=== PATIENT | female | born 1995 | race African-American/Black ===

== ENCOUNTER 2016-07-24 14:41 | Emergency (ER) ==
[2016-07-24 14:51] VITALS: BP 143/94; TEMP 98.4; BMI 35.4
--- NOTE | 2016-07-24 14:59 | ED.PDOC ---
General ED Provider: Dr. JORGE DONNELLY JR Chief Complaint: Abdominal Pain Stated Complaint: patient states she started have pain in left side that was dull and aching. states now it is all across abd. patient states she has had n/ v/d. states has been some bright red blood in the toilet.[ End ]since 299 98.4 85 16 97% 143/94 7/10 loose stools totalof four times nausea and vomiting about the same no one else ill Time Seen by Physician: 14:58 Mode of Arrival: Walk-In Information Source: Patient Exam Limitations: No limitations Primary Care Provider: [facility] Nursing and Triage Documentation Reviewed and Agree: Yes Review of Systems - Review Of Systems Constitutional: Reports: Malaise, Weakness Eyes: Reports: No symptoms Ears, Nose, Mouth, Throat: Reports: No symptoms Respiratory: Reports: No symptoms Cardiac: Reports: No symptoms GI: Reports: Abdominal pain, Blood streaked bowels, Nausea, Vomiting : Reports: No symptoms Musculoskeletal: Reports: No symptoms Skin: Reports: No symptoms Neurological: Reports: No symptoms Endocrine: Reports: No symptoms Hematologic/Lymphatic: Reports: No symptoms All Other Systems: Other Past Medical History - Past Medical History Previously Healthy: Yes Endocrine: Reports: DM 1 Cardiovascular: Reports: None Respiratory: Reports: Asthma Hematological: Reports: None Gastrointestinal: Reports: None Genitourinary: Reports: None Neuro/Psych: Reports: None Musculoskeletal: Reports: Joint Pain Cancer: Reports: None Last Menstrual Period: end of last month - Surgical History General Surgical History: Reports: None - Family History Family History: Reports: Unknown - Social History Smoking Status: Current some day smoker Hx Substance Use: No Alcohol Screening: None Physical Exam - Physical Exam Appearance: Well-appearing Pain Distress: Mild Eyes: JORGE, EOMI, Conjunctiva clear ENT: Ears normal, Nose normal, Oropharynx normal Neck: Supple Respiratory: Airway patent, Breath sounds clear, Breath sounds equal, Respirations nonlabored Cardiovascular: RRR, Pulses normal, No rub, No murmur GI/: Soft, Tender (slight tender ness LUQ away form epigastrium complains of non reproducible pain along colonic distributionand suprapubic) Musculoskeletal: Normal strength, ROM intact, No edema, No calf tenderness Skin: Warm, Dry, Normal color Neurological: Sensation intact, Motor intact, Reflexes intact, Cranial nerves intact, Alert, Oriented Psychiatric: Affect appropriate, Mood appropriate Critical Care Note - Critical Care Note Total Time (mins): 0 Course - Course Orders, Labs, Meds: Lab Review 07/24/16 15:20 Urine Color Yellow Urine Clarity Clear Urine pH 5.5 Ur Specific [place] 1.015 Urine Protein Negative Urine Glucose (UA) 2+ Urine Ketones Negative Urine Blood 2+ Urine Nitrite Negative Urine Bilirubin Negative Urine Urobilinogen 0.2 Ur Leukocyte Esterase Negative Urine Microscopic RBC 5-10 Urine Microscopic WBC 2-5 Ur Squamous Epith Cells 0-2 Urine Test Negative Orders Category Date Time Status OCCULT BLOOD, STOOL Stat LAB 07/24/16 15:04 Uncollected TEST URINE [URINE ] Stat LAB 07/24/16 15:20 Completed URINALYSIS C & S IF INDICATED Stat LAB 07/24/16 15:20 Completed Promethazine HCl [Phenergan 25 mg/ml Vial] MEDS 07/24/16 15:03 Discontinued 25 mg IM ONCE STA CT ABDOMEN/PELVIS WO CONTRAST Stat RADS 07/24/16 16:01 Completed Medications Discontinued Medications Generic Name Dose Route Start Last Admin Trade Name Freq PRN Reason Stop Dose Admin Promethazine HCl 25 mg 07/24/16 15:03 07/24/16 15:16 Phenergan 25 Mg/Ml Vial IM 07/24/16 15:04 25 mg ONCE STA Administration Vital Signs: Temp Pulse Resp BP Pulse Ox 07/24/16 14:41 98.4 F 85 16 143/94 H 97 Departure - Departure Time of Disposition: 17:16 Disposition: HOME SELF-CARE Discharge Problem: Hematochezia, Gastroenteritis, Hematuria Instructions: Gastroenteritis (ED), Rectal Bleeding (ED), Hematuria (ED) Condition: Good Pt referred to PMD for follow-up: Yes Additional Instructions: follow up with PMD recommend gastroenterolgy consult for history of passing blood in stools also recheck urine- no stones on CT recommend evaluation of bladder if blood in urine phenergan for nausea increase fluids Prescriptions: Promethazine HCl [Phenergan Tab] 25 mg PO QID PRN #12 tablet PRN Reason: Nausea / Vomiting Allergies/Adverse Reactions: Allergies No Known Allergies Allergy (Verified 07/24/16 14:45) Home Medications: Ambulatory Orders Insulin NPL/Insulin Lispro [Humalog Mix 50-50 Vial] 64 units SQ QPM 09/17/14 Insulin NPL/Insulin Lispro [Humalog Mix 50-50 Vial] 76 units SQ BID BREAKFAST& LUNCH 09/17/14 Promethazine HCl [Phenergan Tab] 25 mg PO QID PRN #12 tablet 07/24/16
[2016-07-24] MEDS ORDERED: PHENERGAN 25 MG/ML VIAL IM STA (15:03)
[2016-07-24 15:54] LABS: BILIRUBIN,URINE Negative (NEGATIVE); KETONES,URINE Negative (NEGATIVE); LEUKOCYTE ESTERASE ,URINE Negative (NEGATIVE); NITRITE,URINE Negative (NEGATIVE); PH,URINE 5.5 (5-9); PROTEIN,URINE Negative (NEGATIVE); URINE, BLOOD 2+ (NEGATIVE)
[2016-07-24 15:56] LABS: ADD URINE MICROSCOPIC YES
[2016-07-24 16:20] LABS: URINE PREGNANCY INTERNAL QC INTERNAL QC VALID
--- NOTE | 2016-07-24 16:58 | CT ---
EXAM: CT Abdomen without contrast. CT Pelvis without contrast. HISTORY: Abdominal pain. Hematuria. Nausea, vomiting, diarrhea. Left flank pain. COMPARISON: 11/12/2015. TECHNIQUE: Multiple axial images of the abdomen and pelvis were obtained without intravenous contra st. Images were reformatted in the coronal plane. FINDINGS: Please note that evaluation of the abdominal and pelvic structures is limited due to lack of intravenous contrast. The lung bases are clear. No acute osseous abnormality identified. The liver is enlarged and low density. The gallbladder, pancreas, spleen, and adrenal glands demons trate normal contour. No calcified renal stones or hydronephrosis identified. The bowel is normal in course and caliber without evidence for obstruction or inflammatory process. The appendix is normal. Scattered small mesenteric and retroperitoneal lymph nodes are present, me asuring less than 1 cm short axis. No free fluid or free air identified. Uterine contours normal. Left adnexal cystic lesion measures up to 4.1 cm diameter on axial image 127. Urinary bladder is u nremarkable. Left pelvic phlebolith seen on axial image 134. IMPRESSION: 1. No acute inflammatory process in the abdomen or pelvis. 2. Hepatomegaly with fatty infiltration. 3. Left adnexal cystic lesion, similar to the prior study. Consider correlation with pelvic ultras ound if not recently performed.
== END 2016-07-24 17:37 | disposition home or self-care (01) ==
LOC: ED 14:41
DX: K92.1 Melena (principal); K52.9 Noninfective gastroenteritis and colitis, unspecified; R31.9 Hematuria, unspecified; R10.84 Generalized abdominal pain; E10.9 Type 1 diabetes mellitus without complications; F17.210 Nicotine dependence, cigarettes, uncomplicated; Z79.899 Other long term (current) drug therapy
CPT/HCPCS: 81001; 81025; 96372; 99283